=== PATIENT | female | born 2000 | race African-American/Black ===

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

== ENCOUNTER 2020-02-12 12:39 | Emergency (ER) | payer SELFPAY ==
[~2020-02-12] VITALS: Ht 160 cm; Wt 61.6 kg
[~2020-02-12 12:39] MED LIST changes: +ONDA4TAB12 PO
[2020-02-12 13:00] VITALS: BP 124/58
--- NOTE | 2020-02-12 13:16 | ED.ADGEN ---
Past Medical History Past Medical History: No Pertinent History Past Surgical History: No Surgical History Smoking Status: Never Smoker Alcohol Use: None Drug Use: None General Adult EDM: Chief Complaint: VAGINAL BLEEDING HPI: HPI: Patient is a 19 year old female coming in for concern for heavy menstrual ble eding. She is on day 2 of her menstrual cycle. She states she has had numerous quarter size clots. States this is different from her normal periods. Has had 7 out of mild suprapubic cramping. States she does not have any problems with blood clotting or take any blood thinners. Took 2 maximum strength aspirin tablets yesterday for cramping. States she has not been sexually active for over a year. She does remain people in her family who have heavy menstrual cycles. Patient has not seen a healthcare recruiter before. Denies any vaginal discharge or pain. States she has never been on control in the past. No other medical conditions. Patient denies any recent illness. Denies any shortness of breath lightheadedness, palpitations. Denies any fever, diarrhea, vomiting, cough. Review of Systems: Review of Systems: Negative other than stated in HPI Allergies: Allergies: Allergies Coded Allergies Type Severity Reaction Last Updated Verified No Known Drug Allergies 11/29/18 No Physical Exam: PE: Constitutional: Well developed, well nourished, no acute distress, non-toxic appearance. [] HENT: Normocephalic, atraumatic, bilateral external ears normal, oropharynx moist, no oral exudates, nose normal. [] Eyes: PERRLA, EOMI, conjunctiva normal, no discharge. [] Neck: Normal range of motion, no tenderness, supple, no stridor. [] Cardiovascular:Heart rate regular rhythm, no murmur [] Lungs & Thorax: Bilateral breath sounds clear to auscultation [] Abdomen: Bowel sounds normal, soft, no tenderness, no masses, no pulsatile masses. [] Skin: Warm, dry, no erythema, no rash. [] Brisk cap refill, pink nailbeds, no pallor of conjunctiva Back: No tenderness, no CVA tenderness. [] Extremities: No tenderness, no cyanosis, no clubbing, ROM intact, no edema. [] Neurologic: Alert and oriented X 3, normal motor function, normal sensory function, no focal deficits noted. [] Psychologic: Affect normal, judgement normal, mood normal. [] Current Patient Data: Labs: Laboratory Tests Test 02/12/20 13:00 POC Urine HCG, Qualitative Hcg negative (Negative) Vital Signs: Vital Signs Date Time Temp Pulse Resp B/P (MAP) Pulse Ox O2 Delivery O2 Flow Rate FiO2 02/12/20 13:00 98.2 77 16 124/58 (80) 98 Room Air 98.2 EKG: EKG: [] Heart Score: Risk Factors: Risk Factors: DM, Current or recent (<one month) smoker, HTN, HLP, family history of CAD, obesity. Risk Scores: Score 0 - 3: 2.5% MACE over next 6 weeks - Discharge Home Score 4 - 6: 20.3% MACE over next 6 weeks - Admit for Clinical Observation Score 7 - 10: 72.7% MACE over next 6 weeks - Early Invasive Strategies Radiology/Procedures: Radiology/Procedures: [] Course & Med Decision Making: Course & Med Decision Making Discussed with patient about aspirin use and blood clotting. Also discussed that she might be prone to having heavy menstrual cycles secondary to family history. Advised her to follow-up with a healthcare recruiter if she continues to have heavy menstrual cycles. Gave return precautions for the emergency department if symptoms worsen. [] Dragon Disclaimer: Dragon Disclaimer: This electronic medical record was generated, in whole or in part, using a voice recognition dictation system. Departure Departure Impression: Primary Impression: Episode of heavy vaginal bleeding Disposition: 01 DC HOME SELF CARE/HOMELESS Condition: STABLE Referrals: NO PCP (PCP) Patient Instructions: Uterine Bleeding, Dysfunctional Additional Instructions: Return to emergency department or follow-up with your primary care physician if you begin to feel lightheaded, short of breath, see heavy bright red bleeding, or elevated heart rate when you are having vaginal bleeding. AMEENA MERINO MD Feb 12, 2020 13:16
== END 2020-02-12 13:53 | disposition home or self-care (01) ==
LOC: ER 12:39
DX: N93.8 Other specified abnormal uterine and vaginal bleeding (principal)
CPT/HCPCS: 81025; 99282